=== PATIENT | male | born 1970 | race Caucasian/White ===

== ENCOUNTER 2020-12-06 16:57 | Inpatient (IN) | payer OTHER ==
[~2020-12-06] VITALS: Ht 172.7 cm; Wt 63.5 kg
[2020-12-06 17:57] LABS: RED BLOOD COUNT 3.93 M/UL (4.20-5.50); WHITE BLOOD COUNT 16.9 K/UL (4.5-11.0)
[2020-12-06 18:21] LABS: BUN/CREATININE RATIO 25 (0-10)
[2020-12-07] MEDS ORDERED: LYRICA 75 MG CA75 MG PO (01:40)
[2020-12-07 05:14] LABS: HEMOGLOBIN 10.1 gm/dl (14.0-17.5); RED BLOOD COUNT 3.62 M/UL (4.20-5.50)
[2020-12-07 05:15] LABS: WHITE BLOOD COUNT 22.5 K/UL (4.5-11.0)
[2020-12-07 05:36] LABS: BUN/CREATININE RATIO 23 (0-10)
[2020-12-08 04:07] LABS: HEMOGLOBIN 9.6 gm/dl (14.0-17.5); RED BLOOD COUNT 3.48 M/UL (4.20-5.50); WHITE BLOOD COUNT 15.6 K/UL (4.5-11.0)
[2020-12-08 04:38] LABS: BUN/CREATININE RATIO 22 (0-10)
[2020-12-08] MEDS ORDERED: BACTRIM DS TAB1 EACH PO (08:44)
[2020-12-08] MEDS ORDERED: LEVOFLOXACIN500 MG PO (08:44)
[2020-12-08 08:45] LABS: ACINETOBACTER BAUMANNII Not Detected (Negative); CANDIDA ALBICANS Not Detected (Negative); CANDIDA KRUSEI Not Detected (Negative); CANDIDA TROPICALIS Not Detected (Negative); ENTEROCOCCUS Not Detected (Negative); ESCHERICHIA COLI Not Detected (Negative); HAEMOPHILUS INFLUENZAE Not Detected (Negative); KLEBSIELLA OXYTOCA Not Detected (Negative); KLEBSIELLA PNEUMONIAE Not Detected (Negative); KPC-CARBAPENEM-RESISTANCE GENE Not Detected (Negative); PROTEUS Not Detected (Negative); PSEUDOMONAS AERUGINOSA Not Detected (Negative); SERRATIA MARCESANS Not Detected (Negative); STAPHYLOCOCCUS Not Detected (Negative); STAPHYLOCOCCUS AUREUS Not Detected (Negative); STREP AGALACTIAE (GROUP B) Not Detected (Negative); STREP PYOGENES (GROUP A) Not Detected (Negative); mecA (METHICILLIN RESIST GENE Not Detected (Negative); vanA/B (VANCOMYCIN RESIST GENE Not Detected (Negative)
[2020-12-08] MEDS ORDERED: ADVIL200 MG PO (08:46)
[2020-12-08 10:03] LABS: STREPTOCOCCUS DETECTED (Negative)
[2020-12-09 06:57] LABS: HEMOGLOBIN 9.5 gm/dl (14.0-17.5); RED BLOOD COUNT 3.45 M/UL (4.20-5.50); WHITE BLOOD COUNT 13.3 K/UL (4.5-11.0)
[2020-12-09 07:25] LABS: BUN/CREATININE RATIO 13 (0-10)
--- NOTE | 2020-12-09 19:08 | NUR ---
PER DR. MARADIAGA, PT HAS PRN VISTARIL 25MG. DR. MARADIAGA STATED THAT IF THE PT IS ANXIOUS THAT WE CAN GIVE HIM 50MG OF VISTARIL PRN IN PLACE OF 25MG. PT DOING WELL ON 25MG VISTARIL BUT WILL CONTINUE TO MONITOR.
[2020-12-10 04:07] LABS: HEMOGLOBIN 10.4 gm/dl (14.0-17.5); RED BLOOD COUNT 3.75 M/UL (4.20-5.50); WHITE BLOOD COUNT 12.8 K/UL (4.5-11.0)
[2020-12-10 04:57] LABS: BUN/CREATININE RATIO 11 (0-10)
[2020-12-11 07:49] LABS: HEMOGLOBIN 9.2 gm/dl (14.0-17.5)
[2020-12-11 07:57] LABS: RED BLOOD COUNT 3.13 M/UL (4.20-5.50); WHITE BLOOD COUNT 4.8 K/UL (4.5-11.0)
[2020-12-11 08:43] LABS: BUN/CREATININE RATIO 30 (0-10)
[2020-12-12 04:32] LABS: HEMOGLOBIN 10.7 gm/dl (14.0-17.5)
[2020-12-12 04:34] LABS: RED BLOOD COUNT 3.93 M/UL (4.20-5.50); WHITE BLOOD COUNT 12.6 K/UL (4.5-11.0)
[2020-12-12 04:57] LABS: BUN/CREATININE RATIO 15 (0-10)
[2020-12-12 07:56] LABS: HEMOGLOBIN 8.9 gm/dl (14.0-17.5)
[2020-12-12 08:09] LABS: RED BLOOD COUNT 3.09 M/UL (4.20-5.50); WHITE BLOOD COUNT 3.2 K/UL (4.5-11.0)
--- NOTE | 2020-12-12 10:28 | NUR ---
reported to dr. edwards patient cbc 2nd result of platelet 177 yesterday to 646 and the 2nd cbc platelet 138. she stated she will look at the result
--- NOTE | 2020-12-12 11:03 | NUR ---
spoken with dr. edwards, reported of lab results and lab rep information that precaution has been done to obtain the blood always on the left arm. tubes are selected and same person obtained blood, concern of the blood results and dr. edwards acknowledged. dr. edwards informed me that dr. gomes general surgery will see patient sometime today to evaluate patient left arm, informed her that left arm extrimity have a restricted bracelet in placed
[2020-12-12 11:05] LABS: HEMOGLOBIN 11.3 gm/dl (14.0-17.5); RED BLOOD COUNT 4.06 M/UL (4.20-5.50)
[2020-12-12 11:07] LABS: WHITE BLOOD COUNT 14.8 K/UL (4.5-11.0)
[2020-12-12 14:35] LABS: HEMOGLOBIN 12.1 gm/dl (14.0-17.5); RED BLOOD COUNT 4.24 M/UL (4.20-5.50); WHITE BLOOD COUNT 15.3 K/UL (4.5-11.0)
[2020-12-12] MEDS ORDERED: ELIQUIS 5 MG TAB5 MG PO (14:35)
[2020-12-12] MEDS ORDERED: TRAMADOL HCL50 MG PO (14:35)
[2020-12-12] MEDS ORDERED: PROTONIX 40 MG40 M1 PO (14:50)
[2020-12-12] MEDS ORDERED: FERROUS SULFAT325 M2 PO (14:50)
--- NOTE | 2020-12-12 15:47 | NUR ---
dr. merida aware of cbc result
--- NOTE | 2020-12-12 16:51 | NUR ---
PATIENT REFUSED FLU VACINE WHEN OFFERED.
--- NOTE | 2020-12-13 17:09 | NUR ---
EVELIO MANDUJANO CALLED REGARDING HIS MEDICATION PRESCRIPTIONS WHEN HE WAS DISCHARGED NOT BEING COVERED UNDER HIS MEDICAID PLAN, PT HAS ALREADY SPOKE WITH CASE MANAGEMENT TODAY REGARDING THIS SAME ISSUE, IT IS DUE TO HAVING OUT OF STATE MEDICAID. CALLED AND SPOKE WITH [facility] REGARDING SELF PAY AMOUNTS FOR MEDICATIONS, PT HAS A COUPON FOR ELIQUIS CARD THE REST WILL COST AROUND [phone] DOLLARS FOR ALL THE REST. I INFORMED PT OF THIS HE WAS AGREEABLE. AFTER SPEAKING WITH CASE MANAGEMENT CARMELO STATES PT WAS AWARE OF SELF PAY PRIOR TO DISCHARGE YESTERDAY.
== END 2020-12-12 16:06 | disposition home health service (06) | DRG 871 ==
LOC: ER1 16:57 → CDU 23:41 → M/S 23:41 → PROG CARE 23:41 → M/S 12-08 12:25
PROVIDERS: Internal Medicine; Physician Assistant; ADMIT Internal Medicine
PROC: B24BZZ4 Ultrasonography of Heart with Aorta, Transesophageal (ICD-10-PCS; principal; 2020-12-08)
DX: A41.02 Sepsis due to Methicillin resistant Staphylococcus aureus (principal); R65.21 Severe sepsis with septic shock; J15.212 Pneumonia due to Methicillin resistant Staphylococcus aureus; L03.114 Cellulitis of left upper limb; L02.414 Cutaneous abscess of left upper limb; E87.1 Hypo-osmolality and hyponatremia; E44.0 Moderate protein-calorie malnutrition; I82.622 Acute embolism and thrombosis of deep veins of left upper extremity; I31.3 Pericardial effusion (noninflammatory); Z20.822 Contact with and (suspected) exposure to COVID-19; E87.6 Hypokalemia; E86.0 Dehydration; D64.9 Anemia, unspecified; I08.1 Rheumatic disorders of both mitral and tricuspid valves; I95.9 Hypotension, unspecified; F19.10 Other psychoactive substance abuse, uncomplicated; F12.10 Cannabis abuse, uncomplicated; B18.2 Chronic viral hepatitis C; Z87.891 Personal history of nicotine dependence; Z82.49 Family history of ischemic heart disease and other diseases of the circulatory system; Z68.23 Body mass index [BMI] 23.0-23.9, adult
CPT/HCPCS: ECHO; 36415; 71045; 73200; 73201; 80048; 80053; 80202; 80307; 81001; 82272; 82550; 82553; 82607; 82746; 83540; 83605; 83735; 83874; 84100; 84484; 85025; 85027; 85045; 86140; 87040; 87077; 87150; 87186; 93005; 93306; 93971; 96365; 96375; 99285; C9113; G0378; J0692; J0696; J1650; J2270; J2405; J3370; J7030; J7070; Q0177; Q9967; U0002

== ENCOUNTER 2020-12-21 15:09 | Emergency (ER) | payer OTHER ==
[~2020-12-21 15:09] MED LIST: ADVIL200 MG PO; BACTRIM DS TAB1 EACH PO; ELIQUIS 5 MG TAB5 MG PO; FERROUS SULFAT325 M2 PO; LEVOFLOXACIN500 MG PO; LYRICA 75 MG CA75 MG PO; PROTONIX 40 MG40 M1 PO; TRAMADOL HCL50 MG PO
== END 2020-12-21 18:06 | disposition home or self-care (01) ==
LOC: ER1 15:09
DX: S02.121A Fracture of orbital roof, right side, initial encounter for closed fracture (principal); S01.81XA Laceration without foreign body of other part of head, initial encounter; S01.111A Laceration without foreign body of right eyelid and periocular area, initial encounter; S01.411A Laceration without foreign body of right cheek and temporomandibular area, initial encounter; Z23 Encounter for immunization; X58.XXXA Exposure to other specified factors, initial encounter; Y93.9 Activity, unspecified; Y04.8XXA Assault by other bodily force, initial encounter
CPT/HCPCS: 12001; 12014; 70450; 70486; 71250; 73030; 73100; 73130; 90471; 90715; 99284

== ENCOUNTER → 2021-01-25 | Outpatient (CLI) | payer OTHER | LOC: CT 15:24 | DX: J44.9 Chronic obstructive pulmonary disease, unspecified (principal); R91.8 Other nonspecific abnormal finding of lung field | CPT/HCPCS: 71270; Q9967 ==

== ENCOUNTER → 2021-10-30 | Outpatient (CLI) | payer OTHER | LOC: CT 13:30 | DX: S02.31XA Fracture of orbital floor, right side, initial encounter for closed fracture (principal) | CPT/HCPCS: 70480 ==